=== PATIENT | female | born 1940 | race Two or more races ===

== ENCOUNTER 2019-01-19 06:26 | Day surgery (SDC) | payer MEDICARE, OTHER ==
[2019-01-19] MEDS ORDERED: POLYMYXIN B SULFATE 500,000 UNITS, BACITRACIN 50,000 UNITS, NORMAL SALINE 20 ML MC ONE ×3 (07:30)
[2019-01-19] MEDS ORDERED: BUPIVACAINE/EPI PF 0.5% 10 ML VIAL ONE (07:39)
[2019-01-19] MEDS ORDERED: FENTANYL CITRATE 250 MCG/5 ML AMPUL ONE (07:47)
[2019-01-19] MEDS ORDERED: MIDAZOLAM HCL 2 MG/2 ML VIAL ONE (07:47)
[2019-01-19] MEDS ORDERED: ROCURONIUM BROMIDE 50 MG/5 ML VIAL ONE (07:48)
[2019-01-19] MEDS ORDERED: ROCURONIUM BROMIDE 50 MG/5 ML VIAL IV ONE (10:07)
[2019-01-19] MEDS ORDERED: METOCLOPRAMIDE HCL 10 MG/2 ML VIAL IV ONE (10:07)
[2019-01-19] MEDS ORDERED: GLYCOPYRROLATE 0.2 MG/ML VIAL IJ ONE (10:07)
[2019-01-19] MEDS ORDERED: PROPOFOL 200 MG/20 ML BOTTLE IV ONE (10:07)
[2019-01-19] MEDS ORDERED: LIDOCAINE-MPF 2% 5 ML VIAL IJ ONE (10:07)
[2019-01-19] MEDS ORDERED: CEFAZOLIN 1 G VIAL IM ONE (10:07)
[2019-01-19] MEDS ORDERED: EPHEDRINE SULFATE 50 MG/ML AMPUL IM ONE (10:07)
[2019-01-19] MEDS ORDERED: NEOSTIGMINE METHYLSULFATE 10 MG/10 ML VIAL IM ONE (10:07)
[2019-01-19] MEDS ORDERED: IV NORMAL SALINE 1000 ML BAG IV ONE (10:07)
[2019-01-19] MEDS ORDERED: ONDANSETRON 4 MG/2 ML VIAL IV ONE (10:07)
== END 2019-01-19 12:07 | disposition home or self-care (01) ==
LOC: DS 06:26
PROVIDERS: ATTEND Orthopaedic Surgery
DX: M75.101 Unspecified rotator cuff tear or rupture of right shoulder, not specified as traumatic (principal); M75.41 Impingement syndrome of right shoulder; M19.011 Primary osteoarthritis, right shoulder; I95.1 Orthostatic hypotension; R07.9 Chest pain, unspecified; E78.2 Mixed hyperlipidemia; E55.9 Vitamin D deficiency, unspecified; F51.01 Primary insomnia; M81.6 Localized osteoporosis [Lequesne]; M51.36 Other intervertebral disc degeneration, lumbar region; Z96.651 Presence of right artificial knee joint; Z98.890 Other specified postprocedural states; Z79.899 Other long term (current) drug therapy
CPT/HCPCS: 23120; 23410; 71045; C1713 ×2; J0690; J2250; J2405; J2710; J2765; J3010; J3490 ×8; J7120; A4565; A4649; A4663; J7030